=== PATIENT | male | born 1955 | race Caucasian/White ===

== ENCOUNTER → 2017-01-08 | Outpatient (CLI) | payer BC | LOC: FIMAGING 07:06 | PROVIDERS: ATTEND Neurological Surgery ==

== ENCOUNTER → 2017-04-21 | Outpatient (CLI) | payer BC | LOC: CIMAGING 08:13 | PROVIDERS: ATTEND Orthopaedic Surgery Orthopaedic Surgery of the Spine | DX: M96.1 Postlaminectomy syndrome, not elsewhere classified (principal) | CPT/HCPCS: 72125-PO ==

== ENCOUNTER → 2018-06-05 | Outpatient (CLI) | payer BC | LOC: FIMAGING 13:31 | PROVIDERS: ATTEND Internal Medicine | DX: M50.123 Cervical disc disorder at C6-C7 level with radiculopathy (principal); M50.11 Cervical disc disorder with radiculopathy, high cervical region; M48.02 Spinal stenosis, cervical region; Z98.1 Arthrodesis status ==

== ENCOUNTER → 2018-08-05 | Outpatient (CLI) | payer BC ==
[~2018-08-05] MED LIST: GADOBUTROL 10 ML VIAL IVP ONE
== END ==
LOC: FIMAGING 15:30
PROVIDERS: ATTEND Specialist
DX: R97.20 Elevated prostate specific antigen [PSA] (principal); N40.2 Nodular prostate without lower urinary tract symptoms
CPT/HCPCS: A9585

== ENCOUNTER → 2018-08-26 | Outpatient (CLI) | payer BC | LOC: CIMAGING 10:26 | PROVIDERS: ATTEND Orthopaedic Surgery Orthopaedic Surgery of the Spine | DX: R42 Dizziness and giddiness (principal); Z98.1 Arthrodesis status; R26.89 Other abnormalities of gait and mobility | CPT/HCPCS: 93880-PO ==

== ENCOUNTER → 2018-09-24 | Outpatient (CLI) | payer BC | LOC: FIMAGING 10:17 | PROVIDERS: ATTEND Orthopaedic Surgery Orthopaedic Surgery of the Spine | DX: M50.31 Other cervical disc degeneration, high cervical region (principal); M46.92 Unspecified inflammatory spondylopathy, cervical region; Z98.1 Arthrodesis status ==